=== PATIENT | male | born 1955 | race African-American/Black ===

== ENCOUNTER 2021-12-28 16:55 | Emergency (ER) | payer OTHER ==
[2021-12-28 16:59] VITALS: TEMP 98; BMI 37.5
[2021-12-28] MEDS ORDERED: IBUPROFEN 600 MG TABLET (FP) PO ONE ×2 (18:22→18:27)
[2021-12-28] MEDS ORDERED: AMOX TR/POT CLAV 875MG/125MG TABLETS (FP) PO ONE (18:22)
[2021-12-28] MEDS ORDERED: AMOX TR/POT CLAV 875MG/125MG TABLETS (FP) ONE (18:27)
[2021-12-28 22:29] VITALS: BP 137/87; PULSE 89
== END 2021-12-28 22:29 ==
LOC: JER 16:55
PROC: 3E0233Z Introduction of Anti-inflammatory into Muscle, Percutaneous Approach (ICD-10-PCS; principal; 2021-12-28)
DX: L03.032 Cellulitis of left toe (principal)
CPT/HCPCS: 73610-TC-LT-FY; 73630-TC-LT; 99283-25

== ENCOUNTER 2024-04-27 15:23 | Emergency (ER) | payer OTHER ==
[2024-04-27 15:59] VITALS: BMI 34.4
[2024-04-27] MEDS ORDERED: ACETAMINOPHEN 500 MG TABLET (FP) ONE (17:08)
[2024-04-27] MEDS: ACETAMINOPHEN 500 MG TABLET (FP) PO ONE (17:11)
[2024-04-27 20:41] VITALS: BP 100/61; PULSE 86; RESP 18; TEMP 97.8
[2024-04-27 21:57] LABS: EPI CELLS 13 /uL (0-25.1); HYALINE CASTS 2 /uL (0-3.1); PH,URINE 5.5 (5.0-8.0); URINE APPEARANCE CLOUDY; URINE BACTERIA 3 /uL (0-1359); URINE BILIRUBIN 1+ (NEGATIVE); URINE COLOR DK YELLOW; URINE GLUCOSE (UA) NEGATIVE (NEGATIVE); URINE KETONE TRACE (NEGATIVE); URINE LEUK ESTERASE NEGATIVE (NEGATIVE); URINE NITRITE NEGATIVE (NEGATIVE); URINE PROTEIN 1+ (NEGATIVE); URINE RBC 19 /uL (0-23.9); URINE WBC 8 /uL (0-25.8)
[2024-04-27] MEDS ORDERED: METHOCARBAMOL 500 MG TABLET ONE (22:23)
[2024-04-27] MEDS: METHOCARBAMOL 500 MG TABLET PO ONE (22:30)
== END 2024-04-27 22:36 | disposition home or self-care (01) ==
LOC: JER 15:23
DX: M54.50 Low back pain, unspecified (principal); R10.9 Unspecified abdominal pain
CPT/HCPCS: 70450-TC; 72170-TC-FY; 73502-TC-RT-FY; 81003; 87086; 99285-25

== ENCOUNTER 2024-05-07 17:19 | Inpatient (IN) | payer OTHER ==
[2024-05-07 18:38] VITALS: BMI 34.4
[2024-05-07] MEDS ORDERED: NICOTINE POLACRILEX 2 MG LOZENGE BC PRN (21:14)
[2024-05-07] MEDS ORDERED: MAGNESIUM HYDROX 2400MG/30ML ORAL SUSPENSION 30 ML CUP PO PRN (21:14)
[2024-05-07] MEDS ORDERED: IBUPROFEN 400 MG TABLET (FP) PO PRN (21:14)
[2024-05-07] MEDS ORDERED: BENZONATATE 200 MG CAPSULE PO PRN (21:14)
[2024-05-07] MEDS ORDERED: NALOXONE HCL 0.4 MG/ML VIAL IM PRN (21:14)
[2024-05-07] MEDS ORDERED: BISMUTH SUBSALICYLATE 524 MG/30 ML PO PRN (21:14)
[2024-05-07] MEDS ORDERED: POLYETHYLENE GLYCOL (HEALTHYLAX) 3350 17 GM PACKET PO PRN (21:14)
[2024-05-07] MEDS ORDERED: BENZOCAINE/MENTHOL (CHLORASEPTIC ) LOZENGE MM PRN (21:14)
[2024-05-07] MEDS ORDERED: guaiFENesin 600 MG TABLET.ER (FP) PO PRN (21:14)
[2024-05-07] MEDS ORDERED: NICOTINE POLACRILEX 2 MG GUM BUC PRN (21:14)
[2024-05-07] MEDS ORDERED: P-EPHED 60MG/TRIPROLIDI 2.5MG TABLET PO PRN (21:14)
[2024-05-07] MEDS ORDERED: LOPERAMIDE HCL 2 MG CAPSULE PO PRN (21:14)
[2024-05-07] MEDS ORDERED: MAG HYDROX/AL HYDROX/SIMETH 30 ML UNIT-DOSE CUP PO PRN (21:14)
[2024-05-07] MEDS ORDERED: NALOXONE (NARCAN) HCL 4 MG/0.1 ML SPRAY NS PRN (21:14)
[2024-05-07] MEDS ORDERED: ONDANSETRON *ODT* 4 MG TABLET SL PRN (21:14)
[2024-05-07] MEDS: IBUPROFEN 600 MG TABLET (FP) PO PRN (22:34)
[2024-05-07] MEDS: THIAMINE 100 MG TABLET PO SCH (22:34)
[2024-05-07] MEDS: MELATONIN 5 MG TABLETS PO SCH (22:34)
[2024-05-08] MEDS: PRENATAL VITAMINS W/ FOLIC ACID TABLET (FP) PO SCH (09:47)
[2024-05-08 13:23] LABS: HEMATOCRIT 30.8 % (35.4-49); HEMOGLOBIN 10.7 GM/dL (11.7-16.9); MCH 34.1 pg (25.7-33.7); MCHC 34.6 g/dl (32.0-35.9); MEAN CELL VOLUME 98.5 fl (80-96); MEAN PLT VOLUME 7.5 fl (7.5-11.1); PLATELET COUNT 303 10^3/uL (134-434); POTASSIUM 3.8 mmol/L (3.5-5.1); RBC 3.13 M/mm3 (4.00-5.60); RDW 15.3 % (11.9-15.9); WHITE BLOOD COUNT 2.1 K/mm3 (4.0-10.0)
[2024-05-08 13:33] LABS: ALBUMIN 4.1 g/dl (3.4-5.0); BLOOD UREA NITROGEN 12.2 mg/dL (7-18); CALCIUM 9.5 mg/dL (8.5-10.1)
[2024-05-08 13:38] LABS: BILIRUBIN,TOTAL 0.6 mg/dL (0.2-1); TOT PROT 6.5 g/dl (6.4-8.2)
[2024-05-08 13:42] LABS: CREATININE 1.1 mg/dL (0.55-1.3)
[2024-05-08] MEDS: methaDONE HCL 10 MG TABLET PO SCH (14:44)
[2024-05-09] MEDS ORDERED: cloNIDine HCL 0.1 MG TABLET PO PRN (09:42)
[2024-05-10] MEDS: ACETAMINOPHEN 325 MG TABLET (FP) PO PRN (12:30)
[2024-05-10] MEDS: LIDOCAINE 5% TOPICAL PATCH TP SCH (15:37)
[2024-05-10] MEDS: LIDOCAINE PATCH REMOVAL MC SCH (22:37)
[2024-05-11] MEDS: methaDONE HCL 10 MG TABLET (FOR DETOX USE ONLY) PO ONE (10:14)
[2024-05-13] MEDS: methaDONE HCL 10 MG TABLET (FOR DETOX USE ONLY) PO ONE (10:59)
[2024-05-14 12:50] VITALS: BP 107/68; PULSE 92; RESP 17; TEMP 97.7
== END 2024-05-14 13:24 | disposition other institution (70) | DRG 897 ==
LOC: YASAS 17:19 → Y3N 21:59
PROVIDERS: ADMIT Allergy & Immunology; ATTEND Surgery
PROC: HZ2ZZZZ Detoxification Services for Substance Abuse Treatment (ICD-10-PCS; principal; 2024-05-07)
DX: F11.20 Opioid dependence, uncomplicated (principal); M54.50 Low back pain, unspecified; G89.29 Other chronic pain; Z87.891 Personal history of nicotine dependence; Z99.89 Dependence on other enabling machines and devices
CPT/HCPCS: 36415; 80053; 80305; 80307; 85027; 86780; 87811; 93005; 93010

== ENCOUNTER 2024-05-14 13:29 | Inpatient (IN) | payer OTHER ==
[2024-05-14] MEDS ORDERED: NALOXONE (NARCAN) HCL 4 MG/0.1 ML SPRAY NS PRN (16:06)
[2024-05-14] MEDS ORDERED: NALOXONE HCL 0.4 MG/ML VIAL IVPUSH PRN (16:06)
[2024-05-14] MEDS ORDERED: NICOTINE POLACRILEX 4 MG GUM BUC PRN (16:06)
[2024-05-14] MEDS ORDERED: NICOTINE POLACRILEX 4 MG LOZENGE BC PRN (16:06)
[2024-05-14] MEDS ORDERED: LOPERAMIDE HCL 2 MG CAPSULE PO PRN (16:06)
[2024-05-14] MEDS ORDERED: POLYETHYLENE GLYCOL (HEALTHYLAX) 3350 17 GM PACKET PO PRN (16:06)
[2024-05-14] MEDS ORDERED: BENZONATATE 200 MG CAPSULE PO PRN (16:06)
[2024-05-14] MEDS ORDERED: hydrOXYzine PAMOATE 25 MG CAPSULE (FP) PO PRN (16:06)
[2024-05-14] MEDS ORDERED: IBUPROFEN 400 MG TABLET (FP) PO PRN (16:06)
[2024-05-14] MEDS ORDERED: guaiFENesin 600 MG TABLET.ER (FP) PO PRN (16:06)
[2024-05-14] MEDS ORDERED: ACETAMINOPHEN 325 MG TABLET (FP) PO PRN (16:06)
[2024-05-14] MEDS ORDERED: BENZOCAINE/MENTHOL (CHLORASEPTIC ) LOZENGE MM PRN (16:06)
[2024-05-14] MEDS ORDERED: MAGNESIUM HYDROX 2400MG/30ML ORAL SUSPENSION 30 ML CUP PO PRN (16:06)
[2024-05-14] MEDS ORDERED: MAG HYDROX/AL HYDROX/SIMETH 30 ML UNIT-DOSE CUP PO PRN (16:06)
[2024-05-14] MEDS: LIDOCAINE 4% PATCH TP SCH (16:46)
[2024-05-14] MEDS: IBUPROFEN 600 MG TABLET (FP) PO PRN (16:48)
[2024-05-14] MEDS: LIDOCAINE PATCH REMOVAL MC SCH (21:44)
[2024-05-14] MEDS: MELATONIN 5 MG TABLETS PO SCH (21:44)
[2024-05-14] MEDS: METHOCARBAMOL 500 MG TABLET PO PRN (21:44)
[2024-05-14] MEDS: THIAMINE 100 MG TABLET PO SCH (21:44)
[2024-05-15] MEDS: PRENATAL VITAMINS W/ FOLIC ACID TABLET (FP) PO SCH (09:46)
[2024-05-17] MEDS ORDERED: ACETAMINOPHEN 325 MG TABLET (FP) PO PRN (15:41)
[2024-05-18] MEDS: methaDONE HCL 10 MG TABLET PO SCH (11:33)
[2024-05-18 15:40] LABS: HIV INTERPRETATION NEGATIVE (NEGATIVE)
[2024-05-23 06:59] VITALS: TEMP 97.5
[2024-05-25 07:00] VITALS: BP 130/76; PULSE 85; RESP 16
== END 2024-05-25 09:28 | disposition home or self-care (01) | DRG 895 ==
LOC: YASAS 13:29 → Y3W 13:34
PROVIDERS: ADMIT Allergy & Immunology; ATTEND Psychiatry & Neurology Pain Medicine
PROC: HZ42ZZZ Group Counseling for Substance Abuse Treatment, Cognitive-Behavioral (ICD-10-PCS; principal; 2024-05-14)
DX: F11.20 Opioid dependence, uncomplicated (principal); F14.20 Cocaine dependence, uncomplicated; F17.210 Nicotine dependence, cigarettes, uncomplicated; D64.9 Anemia, unspecified; M10.9 Gout, unspecified; M54.50 Low back pain, unspecified; G89.29 Other chronic pain; Z87.891 Personal history of nicotine dependence; Z99.89 Dependence on other enabling machines and devices
CPT/HCPCS: 36415; 87389